=== PATIENT | female | born 1950 | race Caucasian/White ===

== ENCOUNTER 2022-02-04 13:35 | Day surgery (SDC) | payer MEDICARE, OTHER ==
[2022-02-02 08:59] LABS: BASOPHILS % (AUTO) 0.6 % (0-1); EOSINOPHILS # (AUTO) 0.1 X10'3 (0-0.9); EOSINOPHILS % (AUTO) 2.6 % (0-6); HEMATOCRIT 37.4 % (35.0-45.0); HEMOGLOBIN 12.3 g/dl (12.0-16.0); LYMPHOCYTES # (AUTO) 1.5 X10'3 (1.1-4.8); MEAN CORPUSCULAR HEMOGLOBIN 28.8 PG (27.0-31.0); MEAN CORPUSCULAR HGB CONC 32.8 g/dL (33.0-36.5); MEAN CORPUSCULAR VOLUME 87.6 FL (78-98); MEAN PLATELET VOLUME 7.3 FL (7.4-10.4); MONOCYTES # (AUTO) 0.4 X10'3 (0-0.9); MONOCYTES % (AUTO) 7.1 % (2-12); NEUTROPHILS # (AUTO) 3.4 X10'3 (1.8-7.7); NEUTROPHILS % (AUTO) 62.7 % (42-75); PLATELET COUNT 242 X10'3 (140-440); RED BLOOD COUNT 4.27 X10'6 (4.20-5.60); RED CELL DISTRIBUTION WIDTH 14.2 % (11.5-14.5); WHITE BLOOD COUNT 5.5 X10'3 (4.5-11.0)
[2022-02-02 09:12] LABS: APTT 26 SECONDS (22-32)
[2022-02-02 09:14] LABS: ALBUMIN 3.8 G/DL (3.4-5.0); ANION GAP 6 (8-16); BLOOD UREA NITROGEN 13 MG/DL (7-18); BUN/CREATININE RATIO 14.4 (6.6-38.0); CALCIUM 9.3 MG/DL (8.5-10.1); CHLORIDE 103 MMOL/L (99-107); CHOLESTEROL 155 MG/DL (0-200); GLUCOSE 158 MG/DL (70-104); HDL CHOLESTEROL 51 MG/DL (35-60); LDL CHOLESTEROL 89 MG/DL (50-100); POTASSIUM 4.1 MMOL/L (3.5-5.1); SODIUM 138 MMOL/L (135-145); TOTAL CARBON DIOXIDE 29.2 MMOL/L (24-32); TRIGLYCERIDES 105 MG/DL (20-135); eGFR 61 ML/MIN
[2022-02-04] VITALS (7 sets, daily range): BP systolic 132–179; BP diastolic 61–103
[~2022-02-04] VITALS: Ht 167.6 cm; Wt 91.8 kg
[2022-02-04] MEDS ORDERED: normal saline 1,000 ML IV SCH (13:50)
[2022-02-04] MEDS ORDERED: diphenhydrAMINE 25mg capsule PO PRN (13:50)
[2022-02-04] MEDS ORDERED: LORazepam 0.5 MG tablet PO PRN (13:50)
[2022-02-04] MEDS ORDERED: DULA1.5P SQ (14:53)
[2022-02-04] MEDS ORDERED: CITA40TA17 PO (14:53)
[2022-02-04] MEDS ORDERED: LOSA100T57 PO (14:53)
[2022-02-04] MEDS ORDERED: AMLO10TA13 PO (14:53)
[2022-02-04] MEDS ORDERED: GLIP10TA11 PO (14:53)
[2022-02-04] MEDS ORDERED: LEVO75TA PO (14:53)
[2022-02-04] MEDS ORDERED: METF-438 PO (14:53)
[2022-02-04] MEDS ORDERED: TRAZ-251 PO (14:53)
[2022-02-04] MEDS ORDERED: ATOR10TA70 PO (14:53)
[2022-02-04] MEDS ORDERED: DIPH-423 PO (14:59)
[2022-02-04] MEDS ORDERED: ASPI-1265 PO (14:59)
[2022-02-04] MEDS ORDERED: VITAMIN B12 PO (14:59)
[2022-02-04] MEDS ORDERED: nitroGLYCERIN-Tridil 50MG/D5W 250 ML IV ONE (18:30)
[2022-02-04] MEDS ORDERED: midazolam 1 mg/ML 2ml injection ONE (18:31)
[2022-02-04] MEDS ORDERED: verapamil 2.5 mg/ml inj IV ONE (18:31)
[2022-02-04] MEDS ORDERED: LIDOcaine 1% (10mg/ml) 2ml vial ONE (18:31)
[2022-02-04] MEDS ORDERED: fentaNYL/PF 50MCG/1 ML 2ML syringe ONE (18:31)
[2022-02-04] MEDS ORDERED: heparin 1,000unit/ml 10ml vial 10 ML ONE (18:31)
[2022-02-04] MEDS ORDERED: iohexol 350MG/ML 100ml bottle IV ONE ×2 (18:34→19:04)
[2022-02-04] MEDS ORDERED: adenosine 90 MG/30ml kit =/or below 120kg Cath Lab IV ONE (19:25)
[2022-02-04] MEDS ORDERED: HYDROcodone/acetaminophen 5mg/325mg tablet PO PRN (20:35)
[2022-02-04] MEDS ORDERED: HYDROcodone/acetaminophen 10/325mg tab PO PRN (20:35)
== END 2022-02-04 21:40 | disposition home or self-care (01) ==
LOC: SSTAY O 13:35
PROVIDERS: ATTEND Student in an Organized Health Care Education/Training Program
DX: I25.10 Atherosclerotic heart disease of native coronary artery without angina pectoris (principal); I10 Essential (primary) hypertension; E78.5 Hyperlipidemia, unspecified; E11.9 Type 2 diabetes mellitus without complications; G47.33 Obstructive sleep apnea (adult) (pediatric); F10.10 Alcohol abuse, uncomplicated; Z79.82 Long term (current) use of aspirin; Z79.84 Long term (current) use of oral hypoglycemic drugs; Z79.899 Other long term (current) drug therapy; Z79.01 Long term (current) use of anticoagulants
CPT/HCPCS: 36415; 80048; 80061; 82948; 85025; 85610; 85730; 93005; 93458; 93571; 99152; 99153; C1751; C1769; C1894; J0153; J1644; J2250; J3010; J3490; J7030; Q0163; Q9967; A6258; A6402

== ENCOUNTER 2022-04-28 14:27 | Inpatient (IN) | payer MEDICARE, OTHER ==
[2022-04-17 11:02] LABS: BASOPHILS % (AUTO) 0.6 % (0-1); EOSINOPHILS # (AUTO) 0.2 X10'3 (0-0.9); EOSINOPHILS % (AUTO) 3.2 % (0-6); HEMOGLOBIN 10.9 g/dl (12.0-16.0); LYMPHOCYTES # (AUTO) 1.2 X10'3 (1.1-4.8); LYMPHOCYTES % (AUTO) 23.1 % (21-51); MEAN CORPUSCULAR HEMOGLOBIN 27.9 PG (27.0-31.0); MEAN CORPUSCULAR HGB CONC 32.2 g/dL (33.0-36.5); MEAN CORPUSCULAR VOLUME 86.6 FL (78-98); MEAN PLATELET VOLUME 7.6 FL (7.4-10.4); MONOCYTES # (AUTO) 0.3 X10'3 (0-0.9); MONOCYTES % (AUTO) 6.7 % (2-12); NEUTROPHILS # (AUTO) 3.5 X10'3 (1.8-7.7); NEUTROPHILS % (AUTO) 66.4 % (42-75); PLATELET COUNT 254 X10'3 (140-440); RED BLOOD COUNT 3.93 X10'6 (4.20-5.60); RED CELL DISTRIBUTION WIDTH 15.5 % (11.5-14.5); WHITE BLOOD COUNT 5.2 X10'3 (4.5-11.0)
[2022-04-17 11:04] LABS: ALBUMIN 3.6 G/DL (3.4-5.0); ANION GAP 9 (8-16); BLOOD UREA NITROGEN 11 MG/DL (7-18); BUN/CREATININE RATIO 11.3 (6.6-38.0); CALCIUM 9.3 MG/DL (8.5-10.1); CHLORIDE 105 MMOL/L (99-107); CREATININE 0.97 MG/DL (0.40-0.90); GLUCOSE 116 MG/DL (70-104); POTASSIUM 4.4 MMOL/L (3.5-5.1); SODIUM 141 MMOL/L (135-145); TOTAL CARBON DIOXIDE 27.4 MMOL/L (24-32); eGFR 56 ML/MIN
[2022-04-17 11:05] LABS: APTT 29 SECONDS (22-32)
[~2022-04-28] VITALS: Ht 167.6 cm; Wt 89.0 kg
[2022-04-28] VITALS (13 sets, daily range): BP systolic 102–138; BP diastolic 50–82
[~2022-04-28 14:27] MED LIST: AMLO10TA13 PO; AMOX-100 PO; ASPI-1265 PO; ATOR10TA70 PO; CITA40TA17 PO; CYAN250014 PO; DIPH-423 PO; DULA1.5P SQ; GLIP10TA11 PO; LEVO75TA PO; LOSA100T57 PO; TRAZ-251 PO
[2022-04-28] MEDS ORDERED: LORazepam 0.5 MG tablet PO PRN (14:40)
[2022-04-28] MEDS ORDERED: diphenhydrAMINE 25mg capsule PO PRN (14:40)
[2022-04-28] MEDS ORDERED: atropine 0.1mg/ml 10ml syringe ONE (14:47)
[2022-04-28] MEDS ORDERED: heparin 1,000unit/ml 10ml vial 10 ML ONE (14:47)
[2022-04-28] MEDS ORDERED: phenylephrine 10mg/ml inj. -priapism dosing ONE (14:47)
[2022-04-28] MEDS ORDERED: LIDOcaine 1% 30ml preserv. free vial ONE (14:47)
[2022-04-28] MEDS ORDERED: iohexol 350MG/ML 100ml bottle IV ONE (14:48)
[2022-04-28] MEDS ORDERED: DOPamine 400mg/D5W 250ml 0 ML IV ONE (14:50)
[2022-04-28] MEDS ORDERED: MOME45CR3 TOP (16:13)
[2022-04-28] MEDS ORDERED: METF-438 PO (16:13)
[2022-04-28] MEDS ORDERED: CARSR60C PO (16:13)
[2022-04-28] MEDS ORDERED: CLOP75TA34 PO (16:13)
[2022-04-28] MEDS ORDERED: APIX5TAB3 PO (16:13)
[2022-04-28] MEDS ORDERED: GLIP10TA11 PO (16:13)
[2022-04-28] MEDS ORDERED: AMIO200T61 PO (16:13)
[2022-04-28] MEDS: normal saline 1,000 ML IV SCH ×4 (16:24→19:04)
[2022-04-28] MEDS ORDERED: ondansetron/PF 4mg/2ml inj ONE (17:34)
[2022-04-28] MEDS ORDERED: clopidogrel 300mg tablet ONE (17:39)
--- NOTE | 2022-04-28 17:57 | NUR ---
Pt rec'd from cath lab technologist. 1 bad of belongings put in closet. Bilateral hearing aids in ears. Pt stable and needs to lay from until 2099. Right groin soft, cdi, no sign of hematoma or pain.
[2022-04-28] MEDS ORDERED: potassium Cl 20 mEq SR tablet PO PRN ×2 (18:25)
[2022-04-28] MEDS ORDERED: potassium Cl 40MEQ/1/2NS 520ml 520 ML IV PRN (18:25)
[2022-04-28] MEDS ORDERED: magnesium Cl slow-release 64mg tablet PO PRN (18:25)
[2022-04-28] MEDS ORDERED: ondansetron/PF 4mg/2ml inj IV PRN (18:25)
[2022-04-28] MEDS ORDERED: magnesium 4gm in 100ml NS 100 ML IV PRN (18:25)
[2022-04-28] MEDS ORDERED: mag hydrox/Alum hydrox/simeth 30ml oral suspension PO PRN (18:25)
[2022-04-28] MEDS ORDERED: acetaminophen 325mg tablet PO PRN ×2 (18:25→18:30)
[2022-04-28] MEDS ORDERED: magnesium hydroxide 30ml (MOM) UD suspension PO PRN (18:25)
[2022-04-28] MEDS ORDERED: OXAZEpam 15mg capsule PO PRN (18:30)
[2022-04-28] MEDS ORDERED: HYDROcodone/acetaminophen 10/325mg tab PO PRN (18:30)
[2022-04-28] MEDS ORDERED: proCHLORperazine 10 MG/2 ml inj IV PRN (18:30)
[2022-04-28] MEDS ORDERED: HYDROcodone/acetaminophen 5mg/325mg tablet PO PRN (18:30)
[2022-04-28] MEDS ORDERED: pseudoephedrine 30mg tablet PO PRN (18:35)
[2022-04-28] MEDS: DOPamine 400MG/D5W 250ML CRITICAL CARE IV SCH (18:35)
[2022-04-28] MEDS ORDERED: hydrALAZINE 20mg/ml inj. IV PRN (18:35)
--- NOTE | 2022-04-28 18:57 | NUR ---
Problems reprioritized. Patient report given, questions answered & plan of care reviewed with BEE Lucero.
[2022-04-28] MEDS: K and/or MAG REPLACEMENT MC SCH (19:07)
[2022-04-28] MEDS ORDERED: metFORMIN 500mg tablet PO SCH (20:00)
[2022-04-28 20:08] LABS: ALANINE AMINOTRANSFERASE 33 U/L (12-78); ALBUMIN 3.3 G/DL (3.4-5.0); ALBUMIN/GLOBULIN RATIO 0.9 (1.1-1.5); ALKALINE PHOSPHATASE 84 IU/L (46-116); ASPARTATE AMINO TRANSFERASE 20 U/L (10-37); BILIRUBIN,TOTAL 0.3 MG/DL (0.1-1.0)
[2022-04-28 20:09] LABS: BILIRUBIN,DIRECT 0.1 MG/DL (0-0.3)
[2022-04-28] MEDS: apixaban 5mg tablet PO SCH (20:11)
[2022-04-28] MEDS: docusate sod 100mg capsule PO SCH (20:11)
[2022-04-28] MEDS: atorvastatin 10mg tablet PO SCH ×2 (20:12→20:18)
[2022-04-28] MEDS: diltiazem SR 60mg capsule (twice daily) PO SCH (20:13)
[2022-04-28] MEDS ORDERED: traZODone 50mg tablet PO SCH (21:00)
[2022-04-29] VITALS: BP 114/62
[2022-04-29 02:00] VITALS: BP 123/48
[2022-04-29] MEDS: normal saline 1,000 ML IV SCH (03:24)
[2022-04-29 06:20] LABS: CHOLESTEROL 134 MG/DL (0-200); HDL CHOLESTEROL 44 MG/DL (35-60); LDL CHOLESTEROL 72 MG/DL (50-100); MAGNESIUM 1.6 MG/DL (1.5-2.4); TRIGLYCERIDES 110 MG/DL (20-135)
[2022-04-29 06:30] VITALS: BP 113/56
[2022-04-29] MEDS ORDERED: levoTHYROXINE 75mcg tablet PO SCH (07:00)
[2022-04-29] MEDS: docusate sod 100mg capsule PO SCH (07:07)
[2022-04-29] MEDS: diltiazem SR 60mg capsule (twice daily) PO SCH (07:08)
[2022-04-29] MEDS ORDERED: clopidogrel 75mg tablet PO SCH (08:00)
[2022-04-29] MEDS ORDERED: amLODIPine 5mg tablet PO SCH (08:00)
[2022-04-29] MEDS ORDERED: mometasone furoate 0.1% cream 15gm tube TP SCH (08:00)
[2022-04-29] MEDS ORDERED: cyanocobalamin 500mcg tablet PO SCH (08:00)
[2022-04-29] MEDS: K and/or MAG REPLACEMENT MC SCH (08:00)
[2022-04-29] MEDS ORDERED: citalopram 20mg tablet PO SCH (08:00)
[2022-04-29] MEDS ORDERED: amiodarone 200mg tablet PO SCH (08:00)
[2022-04-29] MEDS ORDERED: losartan 50mg tablet PO SCH (08:00)
[2022-04-29] MEDS: DOPamine 400MG/D5W 250ML CRITICAL CARE IV SCH (09:34)
[2022-04-29] MEDS: apixaban 5mg tablet PO SCH (09:56)
[2022-04-29 09:58] VITALS: BP 112/53
--- NOTE | 2022-04-29 10:30 | NUR ---
Per JK, MANAGER RESOURCE Pt does not need to bring plavix in for us to see as this was a continuing medication.
--- NOTE | 2022-04-29 12:29 | NUR ---
Pt stable for d/c per MD orders All d/c ppwk was rev'd with patient and patient spouse. All questions, comments, and concerns were rev'd and answered at this time. "excuse back to work" form was filled out and given to patient. All personal belongings were sent with patient. Patient was wheeled down in w/c by nursing staff to private vehicle were was waiting. 2 pills from chart was given to patient upon d/c.
[2022-04-29] MEDS ORDERED: Dulaglutide (Trulicity) 1.5 MG SQ SCH (13:00)
--- NOTE | 2022-05-18 10:45 | NUR ---
Case Management DC follow up:Spoke with Patient via telephone. S/P: Patient Reports:, Denies: Acute/continuous CP, emergent SOB, resp distress.Verbalizes orthopnea; however no longer uses oxygen at night.Denies: N/V, weakness, vertigo, syncope episodes, orthostatic hypotension, LEWIS,blurry vision, s/s of stroke/BE-FAST, dysphagia, dysuria, hematuria, abdominal pain/distention, hematochezia, melena, unexplained bruising, bleeding, fever, chills.Patient is on both Apixaban and Plavix.Verbalizes understanding of s/s that warrant a 9-11/ER visit for further evaluation.Verbalizes understanding of Rx: why, prescribed;continues/resumes currant Rx as ordered.Verbalizes right groin cath site is clear; denies redness, s/s of infection at site.Verbalizes she has seen her PCP Eitan LAURENT 05/11/22, and has follow up appointment with 06/03/22.Verbalizes care was fine,and she is already back to work.Need met, questions/concerns addressed at DC.No further questions/concerns regarding recent hospital stay and/or DC status at this time.
== END 2022-04-29 12:00 | disposition home or self-care (01) | DRG 36 ==
LOC: SSTAY O 14:27 → PCU 3S 18:05
PROVIDERS: ADMIT Student in an Organized Health Care Education/Training Program; ATTEND Student in an Organized Health Care Education/Training Program
PROC: B3151ZZ Fluoroscopy of Bilateral Common Carotid Arteries using Low Osmolar Contrast (ICD-10-PCS; principal; 2022-04-28)
PROC: 037K3DZ Dilation of Right Internal Carotid Artery with Intraluminal Device, Percutaneous Approach (ICD-10-PCS; 2022-04-28)
PROC: B3101ZZ Fluoroscopy of Thoracic Aorta using Low Osmolar Contrast (ICD-10-PCS; 2022-04-28)
PROC: B3181ZZ Fluoroscopy of Bilateral Internal Carotid Arteries using Low Osmolar Contrast (ICD-10-PCS; 2022-04-28)
PROC: B31C1ZZ Fluoroscopy of Bilateral External Carotid Arteries using Low Osmolar Contrast (ICD-10-PCS; 2022-04-28)
PROC: B41F1ZZ Fluoroscopy of Right Lower Extremity Arteries using Low Osmolar Contrast (ICD-10-PCS; 2022-04-28)
DX: I65.23 Occlusion and stenosis of bilateral carotid arteries (principal); E11.51 Type 2 diabetes mellitus with diabetic peripheral angiopathy without gangrene; E78.5 Hyperlipidemia, unspecified; G47.33 Obstructive sleep apnea (adult) (pediatric); I10 Essential (primary) hypertension; I25.10 Atherosclerotic heart disease of native coronary artery without angina pectoris; I48.91 Unspecified atrial fibrillation; Z79.899 Other long term (current) drug therapy; Z79.01 Long term (current) use of anticoagulants; Z79.84 Long term (current) use of oral hypoglycemic drugs; Z95.1 Presence of aortocoronary bypass graft
CPT/HCPCS: 36224; 36415; 37215; 80048; 80061; 80076; 82948; 83735; 84439; 84443; 85025; 85610; 85730; 93005; A6222; A6258; C1725; C1760; C1769; C1876; C1884; C1887; G0378; J0461; J1265; J1644; J2370; J2405; J3490; J7030; Q0163; Q9967

== ENCOUNTER 2023-02-04 16:23 | Outpatient (CLI) | payer MEDICARE, OTHER ==
[~2023-02-04 16:23] MED LIST changes: +AMI200T PO; -AMOX-100 PO; +APIX5TAB3 PO; -ASPI-1265 PO; +CARSR60C PO; +CLOP75TA34 PO; -DIPH-423 PO; -LOSA100T57 PO; +LOSA100T58 PO; +METF-438 PO; +MOME45CR3 TOP
[2023-02-04 17:01] LABS: BASOPHILS % (AUTO) 0.5 % (0-1); EOSINOPHILS # (AUTO) 0.1 X10'3 (0-0.9); EOSINOPHILS % (AUTO) 0.9 % (0-6); HEMATOCRIT 32.4 % (35.0-45.0); HEMOGLOBIN 10.7 g/dl (12.0-16.0); LYMPHOCYTES # (AUTO) 1.5 X10'3 (1.1-4.8); LYMPHOCYTES % (AUTO) 19.8 % (21-51); MEAN CORPUSCULAR HEMOGLOBIN 27.3 PG (27.0-31.0); MEAN CORPUSCULAR HGB CONC 32.9 g/dL (33.0-36.5); MEAN CORPUSCULAR VOLUME 83.2 FL (78-98); MEAN PLATELET VOLUME 7.6 FL (7.4-10.4); MONOCYTES # (AUTO) 0.4 X10'3 (0-0.9); MONOCYTES % (AUTO) 5.9 % (2-12); NEUTROPHILS # (AUTO) 5.5 X10'3 (1.8-7.7); NEUTROPHILS % (AUTO) 72.9 % (42-75); PLATELET COUNT 294 X10'3 (140-440); RED CELL DISTRIBUTION WIDTH 16.9 % (11.5-14.5); WHITE BLOOD COUNT 7.5 X10'3 (4.5-11.0)
[2023-02-04 17:07] LABS: ALBUMIN 3.8 G/DL (3.4-5.0); ANION GAP 8 (8-16); BLOOD UREA NITROGEN 11 MG/DL (7-18); BUN/CREATININE RATIO 8.6 (10.0-20.0); CALCIUM 9.4 MG/DL (8.5-10.1); CHLORIDE 98 MMOL/L (99-107); CREATININE 1.28 MG/DL (0.40-0.90); GLUCOSE 113 MG/DL (70-104); POTASSIUM 3.8 MMOL/L (3.5-5.1); SODIUM 133 MMOL/L (135-145); eGFR 41 ML/MIN
[2023-02-04 17:11] LABS: APTT 25 SECONDS (22-32); PROTHROMBIN TIME 11.1 SECONDS (9.0-12.0)
[2023-02-08] MEDS ORDERED: ASPI-1265 PO (14:08)
== END 2023-02-05 01:29 | disposition home or self-care (01) ==
LOC: LAB 16:23
PROVIDERS: ATTEND Internal Medicine Interventional Cardiology
DX: Z01.812 Encounter for preprocedural laboratory examination (principal); I11.0 Hypertensive heart disease with heart failure; E78.5 Hyperlipidemia, unspecified; E11.9 Type 2 diabetes mellitus without complications; E66.3 Overweight; R94.39 Abnormal result of other cardiovascular function study; M79.609 Pain in unspecified limb; I70.213 Atherosclerosis of native arteries of extremities with intermittent claudication, bilateral legs; I70.293 Other atherosclerosis of native arteries of extremities, bilateral legs; I70.8 Atherosclerosis of other arteries; I25.10 Atherosclerotic heart disease of native coronary artery without angina pectoris; I65.23 Occlusion and stenosis of bilateral carotid arteries; I25.810 Atherosclerosis of coronary artery bypass graft(s) without angina pectoris; I48.91 Unspecified atrial fibrillation; R07.9 Chest pain, unspecified; I25.110 Atherosclerotic heart disease of native coronary artery with unstable angina pectoris; I50.33 Acute on chronic diastolic (congestive) heart failure; Z79.01 Long term (current) use of anticoagulants
CPT/HCPCS: 36415; 80048; 85025; 85610; 85730